=== PATIENT | male | born 1990 | race Caucasian/White ===

== ENCOUNTER 2020-05-16 23:59 | Emergency (ER) | payer OTHER ==
[2020-05-17 00:15] VITALS: BP 143/92; PULSE 92; RESP 18; TEMP 97.7
--- NOTE | 2020-05-17 00:50 | ED ---
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 Patient is without complaint of headache chest pain shortness breath or abdominal pain. Patient states event be discharged home and be kept in the hospital at this time. Patient is no fever cough or congestion no recent travel history or sick contacts patient significant evaluation of prior hospital with abnormal testing. Patient states he would like to follow-up with his family doctor as opposed to staying in the hospital. No medical history aside from some mild hypertension being overweight. MD Complaint: almost passed out -: hour(s) Prodromal Symptoms: none -: second(s) Witnessed: yes - by bystander Injuries Sustained Associated with Event: None Current Symptoms: none, back to baseline History: previous syncopal episode Treatments Prior to Arrival: none - Related Data Allergies Allergy/AdvReac Type Severity Reaction Status Date / Time No Known Allergies Allergy Verified 05/17/20 00:46 Review of Systems ROS Statement: Those systems with pertinent positive or pertinent negative responses have been documented in the HPI. ROS Other: All systems not noted in ROS Statement are negative. Past Medical History Past Medical History: Hypertension, Myocardial Infarction ([place]) History of Any Multi-Drug Resistant Organisms: MRSA Date of last positivie culture/infection: 2012 MDRO Source:: left foot Past Surgical History: Cholecystectomy Past Psychological History: No Psychological Hx Reported Smoking Status: Former smoker Past Alcohol Use History: Occasional Past Drug Use History: None Reported General Exam Limitations: no limitations General appearance: alert, in no apparent distress Head exam: Present: atraumatic, normocephalic, normal inspection Eye exam: Present: normal appearance, PERRL, EOMI. Absent: scleral icterus, conjunctival injection, periorbital swelling ENT exam: Present: normal exam, mucous membranes moist Neck exam: Present: normal inspection. Absent: tenderness, meningismus, lymphadenopathy Respiratory exam: Present: normal lung sounds bilaterally. Absent: respiratory distress, wheezes, rales, rhonchi, stridor Cardiovascular Exam: Present: regular rate, normal rhythm, normal heart sounds. Absent: systolic murmur, diastolic murmur, rubs, gallop, clicks GI/Abdominal exam: Present: soft, normal bowel sounds. Absent: distended, tenderness, guarding, rebound, rigid Extremities exam: Present: normal inspection, full ROM, normal capillary refill. Absent: tenderness, pedal edema, joint swelling, calf tenderness Back exam: Present: normal inspection Neurological exam: Present: alert, oriented X3, CN II-XII intact Psychiatric exam: Present: normal affect, normal mood Skin exam: Present: warm, dry, intact, normal color. Absent: rash Course Vital Signs 05/17/20 00:08 Temperature 97.7 F Pulse Rate 92 Respiratory 18 Rate Blood Pressure 143/92 O2 Sat by Pulse 96 Oximetry - Reevaluation(s) Reevaluation #1: Medical record transferring paperwork are reviewed Spoke patient length regarding findings, patient prefers to be discharged home and have further evaluation at this time, is agreeable is patient has no complaints his back to baseline Medical Decision Making - Medical Decision Making 30 male DF for evaluation of a near syncopal event no significant findings on significant evaluation at prior facility. Patient is without complaint here with prefer discharged home as opposed to admission, patient can be discharged asymptomatic Disposition Clinical Impression: Near syncope Disposition: HOME SELF-CARE Condition: Good Instructions (If sedation given, give patient instructions): Near Syncope (ED) Is patient prescribed a controlled substance at d/c from ED?: No Referrals: Poncho Oswald MD [Primary Care Provider] - 1-2 days Stefano Dominique MD [STAFF PHYSICIAN] - 1-2 days
== END 2020-05-17 01:07 | disposition home or self-care (01) ==
LOC: EC 23:59
DX: R55 Syncope and collapse (principal); I25.2 Old myocardial infarction; Z86.14 Personal history of Methicillin resistant Staphylococcus aureus infection; Z87.891 Personal history of nicotine dependence
CPT/HCPCS: 99284